=== PATIENT | male | born 1935 | race Caucasian/White ===

== ENCOUNTER 2020-04-02 13:01 | Emergency (ER) | payer MEDICARE, SELFPAY ==
[2020-04-02 13:03] VITALS: BP 142/104; PULSE 147; RESP 23; TEMP 36.1; O2SAT 96; BMI 37.5
--- NOTE | 2020-04-02 13:19 | RAD_ITS ---
STUDY: X-RAY CHEST REASON FOR EXAM: Male, 84 years old. Patient states was having a procedure today and started to have chest pain/palpatations. svt 160''s hx a fib TECHNIQUE: Single AP portable view of the chest. COMPARISON: None. FINDINGS: EKG electrodes are seen. Mild increased markings in the lingular segment of the left upper lobe. This may represent either scarring and/or early infiltrate. There is no demonstrated pleural abnormality. Normal size heart. Normal mediastinum and geovanni. Normal visualized pulmonary arteries. There is atherosclerotic calcification of the aortic arch with tortuosity. There are diffuse degenerative changes of the visualized thoracic spine. There is degenerative osteoarthritis of the bilateral shoulders. There is no demonstrated abnormality of the visualized soft tissue structures of the upper abdomen. RAD/Chest 1 View (Portable) IMPRESSION: Increased lingular markings suggestive of early infiltrate or scarring. Electronically Signed: Ludin Wheat, at 14:13 EDT , Service support ,
--- NOTE | 2020-04-02 13:19 | EKG12_ITS ---
Test Reason : SVT Blood Pressure : / mmHG Vent. Rate : 150 BPM Atrial Rate : 315 BPM P-R Int : 000 ms QRS Dur : 084 ms QT Int : 320 ms P-R-T Axes : 000 052 -68 degrees QTc Int : 505 ms Atrial flutter with variable A-V block ST & T wave abnormality, consider inferior ischemia Abnormal ECG Confirmed by MANASA LYMAN ([id number]), restaurant expeditor CELSA AYERS ([id number]) on 04/07/2020 1:21:33 PM Referred By: HAKAN Confirmed By:MANASA LYMAN
--- NOTE | 2020-04-02 13:22 | ED.DCSUM_ITS ---
- ER Visit Summary Date of Service: 04/02/20 Chief Complaint: Accelerated heart rate History of Present Illness: The patient is a 84 M history of CAD, RI, cardiac stents x2, A. fib, diabetes and hypertension. Prior colon cancer with partial colectomy. Patient today wanting to get a back injection. While at the surgery center in accelerated heart rate prior to any injection being done they diagnosed him with possible SVT versus recurrent A. fib and same in the ER. He states the last several days he has had some intermittent shortness of breath and intermittent chest pain. He states this feels like the last time he was in A. fib. He has no idea when this episode started. Patient is anticoagulated on Eliquis and he sees a outside sales associate from a [facility]. Physical Examination: Older male no acute distress vital signs stable heart rate 147. HEENT exam unremarkable. Neck nontender. Lungs clear to auscultation. Heart irregularly irregular mid heart rates A. fib, movement on the monitor. Abdomen soft nontender normal bowel sounds no peritoneal signs. Remedies moves all 4. Calves are nontender without edema or cords. Neurologically he is awake and alert with no focal motor deficits. Test Results: EKG shows A. flutter at 150. This x-ray portable 1 view read by myself and radiologist shows no acute abnormality. CBC normal. White count is 8. Hemoglobin 13. Chemistries unremarkable. Troponin 0 0.043. Emergency Department Course and Treatment: Patient be treated with IV Cardizem. Labs are being obtained. Has not is likely need to be admitted. Repeat exam patient is doing well at 2:28 PM. His heart rate is 85. He remains in a flutter which is chronically in an anticoagulated 4. He is comfortable being discharged home. Treatment Plan: Continue his current medications. Follow-up with his primary care physician. Return if worse Disposition: Discharge Impression: Recurrent A. flutter with RVR History of A. fib / flutter on Eliquis History of diabetes History of CAD with prior RI in 2 cardiac stents This note was generated with Win[employer] software. It may contain incorrect words, spelling, and punctuation that were not noted in review of the chart prior to signing ED Disposition - Plan for ED Patient: Referrals: Freeman Ding MD [Primary Care Provider] -
[2020-04-02] MEDS: dilTIAZem 25 MG/5 ML Vial IV BOLUS (13:30)
[2020-04-02 13:35] VITALS: BP 121/97; PULSE 87; RESP 28; O2SAT 96
[2020-04-02 13:36] LABS: Absolute Lymphocyte Count 1.35 X10^3/uL (0.83-4.51); Absolute Neutrophil Count 6.5 X10^3/uL (2.0-7.7); Basophil# 0.08 X10^3/uL; Basophil% 0.9 % (0-1); Eosinophil# 0.09 X10^3/uL; Hematocrit 42.6 % (40-54); Hemoglobin 13.8 g/dL (13.0-16.5); Lymphocyte # 1.35 X10^3/ul (4.0); Lymphocyte % 15.2 % (19-41); Mean Corp Hgb Conc 32.4 g/dL (32-36); Mean Corpuscular Hgb 33.2 pg (27.0-32.0); Mean Corpuscular Volume 102.4 fL (80-94); Mean Platelet Vol. 11.5 fl (6.2-12.0); Monocyte# 0.84 X10^3/uL; Monocyte% 9.5 % (0-10); NRBC Flagged by Analyzer 0 % (0-5); Neutrophil # 6.47 X10^3/uL (2.7-7.7); Neutrophil % 72.9 % (47-70); Platelet Count 189 K/mm3 (150-450); RBC Distribution Width CV 14.3 % (11.6-14.6); RBC Distribution Width SD 54.3 fl (35.1-43.9); Red Blood Count 4.16 M/mm3 (4.6-6.2); White Blood Count 8.9 K/mm3 (4.4-11.0)
[2020-04-02 14:05] LABS: International Normalized Ratio 1.1; Prothrombin Time (Protime)PT. 13.2 SECONDS (11.7-14.9)
[2020-04-02 14:06] LABS: Partial Thromboplast Time 28.1 Seconds (24.1-36.2)
[2020-04-02 14:12] VITALS: BP 115/72; PULSE 85; RESP 23; O2SAT 96
[2020-04-02 14:14] LABS: Anion Gap 7 (5-15); BUN 24 mg/dL (7-18); BUN/Creat Ratio 17.4 RATIO (10-20); Calcium,Total 9.2 mg/dL (8.5-10.1); Chloride 105 mmol/L (98-107); Creatinine, Serum 1.38 mg/dL (0.70-1.30); EST Glomerular Filtration Rate 52 mL/min (>60); Est Glom Filt Rate - Afr Amer 63 mL/min (>60); Estimated Creatinine Clearance 32.64 ml/min; Glucose 239 mg/dL (74-106); Sodium Level 140 mmol/L (136-145)
--- NOTE | 2020-04-02 14:36 | DCINST.ED_ITS ---
ED Disposition - Plan for ED Patient: Disposition: Home or Assisted Living Instructions: ED Paroxysmal Atrial Flutter Referrals: Freeman Ding MD [Primary Care Provider] - 3-5 Days if not improving Additional Instructions: Continue your current medications. Return to emergency department if feeling worse or if your heart rate is consistently over 110. Follow-up with your primary care physician or your title inspector within the next week.
[2020-04-02 14:48] VITALS: BP 134/72; PULSE 86; RESP 16; O2SAT 98
== END 2020-04-02 14:55 | disposition home or self-care (01) ==
PROVIDERS: Emergency Provider Emergency Medicine; PCP Family Medicine
DX: I48.92 Unspecified atrial flutter (principal); I25.10 Atherosclerotic heart disease of native coronary artery without angina pectoris; E11.9 Type 2 diabetes mellitus without complications; I48.91 Unspecified atrial fibrillation; I10 Essential (primary) hypertension; Z79.01 Long term (current) use of anticoagulants; Z95.5 Presence of coronary angioplasty implant and graft; Z79.82 Long term (current) use of aspirin; Z79.4 Long term (current) use of insulin
CPT/HCPCS: 71045; 80048; 84484; 85025; 85610; 85730; 93005; 96374; 99285; A4216